=== PATIENT | male | born 1970 | race Caucasian/White ===

== ENCOUNTER 2021-11-26 06:37 | Observation (INO) | payer BC, OTHER ==
[2021-11-24 15:02] LABS: BASOPHILS % 0.6 % (0.0-1.0); EOSINOPHILS # (AUTO) 0.2 (0.0-0.4); EOSINOPHILS % 4.2 % (0.0-6.0); HEMATOCRIT 44.7 % (38.2-49.6); HEMOGLOBIN 15.8 g/dL (14.0-18.0); LYMPHOCYTES # (AUTO) 1.4 (1.0-3.2); LYMPHOCYTES % 26.8 % (18.0-39.1); MEAN CORPUSCULAR HEMOGLOBIN 32.8 pg (28-32); MEAN CORPUSCULAR HGB CONC 35.3 g/dL (31-35); MEAN CORPUSCULAR VOLUME 92.9 fL (81-99); MONOCYTES # (AUTO) 0.3 (0.2-0.8); MONOCYTES % 6.5 % (4.4-11.3); NEUTROPHILS # (AUTO) 3.1 (2.1-6.9); NEUTROPHILS % 61.5 % (38.7-80.0); PLATELET COUNT 177 x10e3/uL (140-360); RED BLOOD COUNT 4.81 x10e6/uL (4.3-5.7); RED CELL DISTRIBUTION WIDTH 11.8 % (11.7-14.4)
[2021-11-24 15:12] LABS: INR 0.88; PROTHROMBIN TIME 12.8 seconds (11.9-14.5)
[2021-11-24 15:13] LABS: PARTIAL THROMBOPLASTIN TIME 24.5 seconds (23.8-35.5)
[2021-11-24 15:20] LABS: CALCIUM 9.6 mg/dL (8.4-10.2); CREATININE, SERUM 1.55 mg/dL (0.72-1.25)
[~2021-11-26] VITALS: Ht 182.9 cm; Wt 122.5 kg
[~2021-11-26 06:37] MED LIST: AMBIEN10 MG PO; AMLODIPINE-VAL1 EAC1 PO; ARIMIDEX1 MG PO; ARMOUR THYROID60 MG PO; ATENOLOL100 MG PO; ATENOLOL50 MG PO; CENTRUM SILVER1 EAC3 PO; DICLOFENAC PO; DYMISTA NASAL S23 GM INH; HYDROCHLOROTHIA50 MG PO; HYDROCODONE-IBU1 TAB PO; IBUPROFEN; LIPITOR10 MG PO; MAXZIDE 37.5 M1 EACH PO; MISOPROSTOL PO; NAPROXEN500 MG PO; SILDENAFIL PO; SYNTHROID100 MCG PO; TESTOSTERO200 MG/1 M INJ; VIT D3 PO; VOLTAREN100 GM TOP; WELLBUTRIN XL150 MG PO
[2021-11-26] MEDS ORDERED: Vancomycin IV 1 GM VIAL ONE (07:35)
[2021-11-26] MEDS ORDERED: LIDOCAINE 1% W/EPINEPHRINE 20 ML VIAL ONE (07:35)
[2021-11-26] MEDS ORDERED: THROMBIN FOR SOLN 5,000 UNIT VIAL ONE (07:35)
[2021-11-26] MEDS ORDERED: HYDROCODON-ACE1 EA12 PO (09:07)
[2021-11-26] MEDS ORDERED: SUGAMMADEX SODIUM 200 MG/2 ML VIAL IV ONE (09:08)
[2021-11-26] MEDS ORDERED: LACTATED RINGER'S 1,000 ML IV SCH (09:15)
[2021-11-26] MEDS ORDERED: CARISOPRODOL 350 MG TAB PO PRN (09:15)
[2021-11-26] MEDS ORDERED: OXYCODONE/ACETAMINOPHEN 5-325 1 EACH TABLET PO PRN (09:15)
[2021-11-26] MEDS ORDERED: HYDROMORPHONE 2MG/ML 2 MG/ML ML IV PRN (09:15)
[2021-11-26] MEDS ORDERED: ACETAMINOPHEN 325 MG TAB PO PRN (09:15)
[2021-11-26] MEDS ORDERED: ONDANSETRON HCL INJ 2MG/ML 2ML 2 MG/ML VIAL IV PRN (09:15)
[2021-11-26] MEDS ORDERED: MORPHINE SULFATE 5 MG/ML VIAL IM PRN (09:15)
[2021-11-26] MEDS ORDERED: MAGNESIUM/ALUMINUM/SIMETHICONE 30 ML UDC PO PRN (09:15)
[2021-11-26] MEDS ORDERED: PROMETHAZINE HCL (IM) 25 MG/ML VIAL IM PRN (09:15)
[2021-11-26] MEDS ORDERED: FENTANYL CITRATE/PF 100MCG/2 ML INJ ONE ×2 (09:25→12:43)
[2021-11-26] MEDS ORDERED: Morphine 4mg Syringe 4 MG/ML INJ ONE (10:02)
[2021-11-26 10:18] VITALS: BP 128/70
[2021-11-26 11:01] VITALS: BP 128/70
[2021-11-26] MEDS ORDERED: MIDAZOLAM HCL 2 MG/2 ML VIAL ONE (12:43)
[2021-11-26] MEDS ORDERED: PROPOFOL IV EMULSION 10 MG/ML 20 ML VIAL ONE (13:20)
[2021-11-26] MEDS ORDERED: SUCCINYLCHOLINE CHLORIDE 20 MG/ML 10ML VIAL ONE (13:20)
[2021-11-26] MEDS ORDERED: DEXAMETHASONE SOD PHOS INJ 4 MG/ML SDV ONE (13:20)
[2021-11-26] MEDS ORDERED: LIDOCAINE HCL 2% LOCAL INJ 5 ML SDV VIAL INJ ONE (13:20)
[2021-11-26] MEDS ORDERED: POVIDONE IODINE 0.05% 0.05 % ML PO ONE (13:20)
[2021-11-26] MEDS ORDERED: ROCURONIUM BROMIDE 10 MG/ML 5ML VIAL IV ONE (13:20)
[2021-11-26] MEDS ORDERED: ONDANSETRON HCL INJ 2MG/ML 2ML 2 MG/ML VIAL ONE (13:20)
[2021-11-26] MEDS ORDERED: SEVOFLURANE INHAL SOLN 250 ML PEN BTL ONE (13:20)
[2021-11-26] MEDS ORDERED: Cefazolin 1 GM in SODIUM CHLORIDE 0.9% 50ML 50 ML IV SCH (14:00)
[2021-11-26] MEDS ORDERED: AZELASTINE NS SCH (17:00)
[2021-11-26] MEDS ORDERED: FLUTICASONE NS SCH (17:00)
[2021-11-26] MEDS ORDERED: ZOLPIDEM TARTRATE 10 MG TAB PO SCH (21:00)
[2021-11-26] MEDS ORDERED: ATORVASTATIN 10 MG TAB PO SCH (21:00)
[2021-11-26] MEDS ORDERED: ZOLPIDEM TARTRATE 5 MG TAB PO PRN (21:00)
[2021-11-27] MEDS ORDERED: THYROID 60 MG TAB PO SCH (06:00)
[2021-11-27] MEDS ORDERED: ANASTROZOLE 1 MG TAB PO SCH (09:00)
[2021-11-27] MEDS ORDERED: SILDENAFIL PO SCH (09:00)
[2021-11-27] MEDS ORDERED: AMLODIPINE BESYLATE 10 MG TAB PO SCH (09:00)
[2021-11-27] MEDS ORDERED: TRIAMTERENE/HCTZ 37.5-25 MG TAB PO SCH (09:00)
== END 2021-11-26 18:08 | disposition home or self-care (01) ==
LOC: OR 06:37 → PACU V 09:04 → MED/SURG2 10:18
PROVIDERS: ADMIT Neurological Surgery; ATTEND Neurological Surgery
DX: M48.062 Spinal stenosis, lumbar region with neurogenic claudication (principal); I10 Essential (primary) hypertension; E03.9 Hypothyroidism, unspecified; E78.5 Hyperlipidemia, unspecified; Z20.822 Contact with and (suspected) exposure to COVID-19; G47.33 Obstructive sleep apnea (adult) (pediatric); E78.00 Pure hypercholesterolemia, unspecified
CPT/HCPCS: 36415; 63047; 71046; 72020; 80048; 85025; 85610; 85730; 86850; 86900; 88304; 88311; 93005; G0378; J0330; J0690; J1100; J2001; J2250; J2270; J2405; J2704; J3010; J3370; U0002